=== PATIENT | male | born 1950 | race Two or more races ===

== ENCOUNTER 2020-05-24 10:27 | Outpatient (CLI) | payer OTHER | END 2020-05-24 17:18 | disposition home or self-care (01) | LOC: OFIC 805 10:27 | PROVIDERS: ATTEND Otolaryngology | DX: H93.13 Tinnitus, bilateral (principal); H61.23 Impacted cerumen, bilateral; H90.3 Sensorineural hearing loss, bilateral ==

== ENCOUNTER 2020-06-07 14:17 | Outpatient (CLI) | payer OTHER | END 2020-06-07 15:00 | disposition home or self-care (01) | LOC: OFIC 805 14:17 | PROVIDERS: ATTEND Otolaryngology | DX: H90.3 Sensorineural hearing loss, bilateral (principal) ==

== ENCOUNTER → 2020-07-19 | Outpatient (CLI) | payer OTHER | END | disposition home or self-care (01) | LOC: OFIC 805 08:45 | PROVIDERS: ATTEND Otolaryngology | DX: H90.3 Sensorineural hearing loss, bilateral (principal); H93.13 Tinnitus, bilateral; H61.23 Impacted cerumen, bilateral ==

== ENCOUNTER 2020-11-10 09:00 | Outpatient (CLI) | payer OTHER | END 2020-11-10 10:04 | disposition home or self-care (01) | LOC: OFIC 805 09:00 | PROVIDERS: ATTEND Otolaryngology | DX: H90.3 Sensorineural hearing loss, bilateral (principal); H61.23 Impacted cerumen, bilateral ==